=== PATIENT | female | born 1945 | race Caucasian/White ===

== ENCOUNTER 2016-07-05 07:20 | Day surgery (SDC) | payer OTHER, MEDICARE ==
[2016-07-05 08:20] VITALS: BMI 21.1
[2016-07-05] MEDS ORDERED: PROPOFOL 20 ML ONE ×2 (08:36)
[2016-07-05 09:27] VITALS: TEMP 97.5
[2016-07-05 11:49] VITALS: BP 132/71; PULSE 70
--- NOTE | 2016-07-09 12:12 | PATH ---
Surgical Pathology Report Patient Name: JOCELYN WALKER [facility] [place]. Rec. #: [id number] /Age/Gender: 1945 (Age: 71) / F Account: [id number] Location: [facility]-ENDOSCOPY Taken: 07/05/2016 Received: 07/05/2016 Reported: 07/09/2016 Physicians: Raisa Hale M.D. Specimen(s) Received A: BX 2ND PORTION DUODENUM & DUODENAL BULB B: BX ANTRUM C: BX DISTAL ESOPHAGUS D: BX CECAL POLYP Clinical History History of colon polyp, epigastric pain Hiatal hernia, gastritis, colon diverticula, polyps Final Diagnosis A. DUODENUM, SECOND PORTION AND BULB, BIOPSY: DUODENAL MUCOSA WITH CHRONIC INFLAMMATION AND FOCAL YURI'S GLANDS HYPERPLASIA. NO HISTOLOGIC EVIDENCE OF GLUTEN SENSITIVE ENTEROPATHY (CELIAC DISEASE). B. STOMACH, ANTRUM, BIOPSY: GASTRIC ANTRAL MUCOSA WITH MODERATE CHRONIC GASTRITIS AND REACTIVE GASTROPATHY. IMMUNOSTAIN FOR H. PYLORI IS NEGATIVE FOR ORGANISMS. C. ESOPHAGUS, DISTAL, BIOPSY: SQUAMOUS EPITHELIUM WITH CHRONIC INFLAMMATION AND REFLUX TYPE CHANGES. NO COLUMNAR EPITHELIUM PRESENT (NO INTESTINAL METAPLASIA/WHITE'S ESOPHAGUS IDENTIFIED). D. COLON, CECUM, POLYP, BIOPSY: CONSISTENT WITH INFLAMMATORY/POST INFLAMMATORY TYPE POLYP. Electronically Signed Darius hSay M.D. Gross Description A. Received in formalin, labeled "biopsy second portion of duodenum and duodenal bulb" are 3 bradley, irregular portions of soft tissue averaging 0.4 cm. in greatest dimension. The specimens are submitted in toto in one cassette. B. Received in formalin, labeled "biopsy antrum" are 3 bradley, irregular portions of soft tissue averaging 0.3 cm in greatest dimension. The specimens are submitted in toto in one cassette. C. Received in formalin, labeled "biopsy distal esophagus" are 2 bradley, irregular portions of soft tissue averaging 0.4 cm in greatest dimension. The specimens are submitted in toto in one cassette. D. Received in formalin, labeled "biopsy cecal polyp" is a bradley, irregular portion of soft tissue measuring 0.6 cm in greatest dimension. The specimen is submitted in toto in one cassette. /07/05/2016 saudi07/05/2016
== END 2016-07-05 10:30 | disposition home or self-care (01) ==
LOC: JASU-ENDO 07:20
PROVIDERS: ATTEND Internal Medicine Gastroenterology
PROC: 0DB98ZX Excision of Duodenum, Via Natural or Artificial Opening Endoscopic, Diagnostic (ICD-10-PCS; 2016-07-05)
PROC: 0DB68ZX Excision of Stomach, Via Natural or Artificial Opening Endoscopic, Diagnostic (ICD-10-PCS; 2016-07-05)
PROC: 0DB38ZX Excision of Lower Esophagus, Via Natural or Artificial Opening Endoscopic, Diagnostic (ICD-10-PCS; 2016-07-05)
PROC: 0DBH8ZX Excision of Cecum, Via Natural or Artificial Opening Endoscopic, Diagnostic (ICD-10-PCS; principal; 2016-07-05 08:30)
DX: Z12.11 Encounter for screening for malignant neoplasm of colon (principal); Z86.010 Personal history of colon polyps; D12.0 Benign neoplasm of cecum; K57.30 Diverticulosis of large intestine without perforation or abscess without bleeding; K64.8 Other hemorrhoids; K29.70 Gastritis, unspecified, without bleeding; K44.9 Diaphragmatic hernia without obstruction or gangrene; K29.80 Duodenitis without bleeding
CPT/HCPCS: 88305-TC; 88342-TC